=== PATIENT | male | born 1985 | race Caucasian/White ===

== ENCOUNTER 2025-02-24 14:22 | Inpatient (IN) | payer OTHER, SELFPAY ==
[2025-02-24] VITALS (7 sets, daily range): BP systolic 88–113; BP diastolic 53–71; PULSE 75–112; RESP 16–20; TEMP 36.8–37.2; O2SAT 91–100; BMI 16.0
--- NOTE | ~2025-02-24 | CT_ITS ---
CLINICAL HISTORY: pleural effusion hypoxia wt loss ?malignancy vs PE CT angiography chest with contrast. 3D Postprocessing. Comparison: None Findings: The heart is normal size. RV/LV ratio is normal. Unremarkable thoracic aorta and great vessels. No aneurysm. No acute pulmonary embolus. The visualized thyroid and mediastinum are unremarkable. Moderate left pleural effusion. Complete consolidation of the left lower lobe. Scattered nodular and masslike foci of consolidation within the right lower lobe measuring up to 3.6 cm in size. Mild ground-glass opacities within the right lower lobe. Nodular foci of consolidation within the posterior aspect of the left upper lobe measuring up to 2 cm in size. The visualized upper abdomen is unremarkable. The bones are intact. IMPRESSION: 1. No evidence of pulmonary artery embolism. 2. Moderate left pleural effusion. 3. Complete consolidation of the left lower lobe, compatible with pneumonia. 4. Nodular and masslike foci of consolidation are present within the lungs, most pronounced within the right lower lobe. This may be secondary to pneumonia. Malignancy is also in the differential. Recommend follow-up to resolution. This document has been electronically signed by: Renae Ashley MD on 02/24/2025 17:32:49
--- NOTE | ~2025-02-24 | XR_ITS ---
EXAMINATION: XR CHEST CLINICAL INFORMATION: SOB, abn breath sounds on L side COMPARISON: [September, is not available on PACS. TECHNIQUE: 2 views of the chest were obtained. FINDINGS: Opacity in the right lower hemithorax. Meniscal shaped opacity in the lower left hemithorax. No pneumothorax. Cardiomediastinal silhouette size is normal. Mild multilevel thoracic scoliosis. Gas filled prominent splenic colonic flexure and transverse colon. XR/XR chest 2V IMPRESSION: Right-sided pleural effusion, moderate to large volume. Airspace disease versus malignancy, right lower lung lobe. Electronically signed by: En Alcantara MD 02/24/2025 02:54 PM EDT
--- NOTE | 2025-02-24 14:23 | ECG_ITS ---
Test Reason : CHEST PAIN Blood Pressure : */* mmHG Vent. Rate : 107 BPM Atrial Rate : 107 BPM P-R Int : 140 ms QRS Dur : 92 ms QT Int : 366 ms P-R-T Axes : 55 13 31 degrees QTcB Int : 488 ms Sinus tachycardia Otherwise normal ECG No previous ECGs available Referred By: Generic ED Physician Electronically Signed By: NATALIA MIRANDA
--- NOTE | 2025-02-24 14:35 | ED_ITS ---
HPI - General Adult General Chief complaint: Upper Respiratory Symptoms Stated complaint: Chest Pain Time Seen by Provider: 02/24/25 15:27 Source: patient, RN notes reviewed and old records reviewed Mode of arrival: ambulatory History of Present Illness ED Provider: Jennifer Hu PA-C HPI narrative: 39 year old male with a past medical history of substance use disorder presents to the ED complaining of productive cough x 3 weeks. He reports associated 10 lb unintentional weight loss over the past 2 weeks. Denies fever, chills, abdominal pain, nausea, vomiting, travel, sick contacts. Denies IVDA however admits to snorting cocaine, heroin, Xanax Related Data Home Medications ?Medication ?Instructions ?Recorded ?Confirmed No Known Home Meds 02/24/25 02/24/25 Allergies Allergy/AdvReac Type Severity Reaction Status Date / Time cat dander AdvReac Difficulty Verified 02/24/25 14:39 Breathing dog dander AdvReac Difficulty Verified 02/24/25 14:39 Breathing Review of Systems 2 Review of Systems: Yes all other systems are reviewed and are negative Constitutional: Constitutional: Reports as per [facility] Past Medical History Attestation statement: The following information was validated with the patient. Source: old records reviewed Social History Social History Patient Tobacco Use Status: Current someday Tobacco user Smoked in Last 30 Days: Yes Use of substances other than those prescribed or required for medical reasons: Yes Substance Use Type: Crack/Cocaine and Heroin Substance Use Frequency: Weekly Last Used Substance: Days (ago) Advance Directives: No Advance Directives Information Provided: Yes Nutrition Risks: No Nutritional Risk Physical Exam ED Vital Signs: Vital Signs - 24 hr 02/24/25 14:34 02/24/25 15:19 02/24/25 15:41 Temperature 98.7 F 98.6 F Pulse Rate 112 H 95 Respiratory Rate 20 20 Blood Pressure 113/71 100/70 Pulse Oximetry 91 L 99 99 Oxygen Delivery Method Room Air Nasal Cannula Nasal Cannula Oxygen Flow Rate 2 02/24/25 16:41 02/24/25 16:41 02/24/25 16:42 Temperature Pulse Rate 75 78 Respiratory Rate 18 18 Blood Pressure 88/62 L 93/53 L Pulse Oximetry 91 L 99 99 Oxygen Delivery Method Room Air Nasal Cannula Nasal Cannula Oxygen Flow Rate 2 2 02/24/25 17:21 Temperature 98.3 F Pulse Rate 76 Respiratory Rate 18 Blood Pressure 98/64 Pulse Oximetry 100 Oxygen Delivery Method Nasal Cannula Oxygen Flow Rate 2 BMI result Body Mass Index 16.0 Const General: cooperative and no acute distress Nutritional Appearance: cachectic Orientation/consciousness: patient oriented x3 Limitations: no limitations HENMT Head: Yes normal to inspection and Yes atraumatic Ears: hearing grossly normal bilaterally General nose exam: Normal external nose present Face and sinus: Yes normal facial exam Eyes General: appearance normal, both eyes and all related structures EOM: EOMs intact bilaterally Neck Neck: Yes normal visual inspection and Yes no meningeal signs Resp Effort & Inspection: normal respiratory effort and no respiratory distress Auscultation: diminished lung sounds bilateral in the lower lung ferris Cardio Rate: regular rate and tachycardic Heart sounds: S1 normal heart sound present and S2 normal heart sound present GI Inspection: Yes normal to inspection Palpation (GI): Soft to palpation, nontender, no guarding and not rigid Skin Rashes: no rashes Wounds: no wounds Neuro General: patient oriented x3, tone normal, moves all extremities and no meningeal signs Cranial nerves: Yes CN's II-XII intact bilaterally Gait exam (Neuro): Normal gait present Extrem General: Yes normal to inspection Course Course Course Narrative: RME performed by Fannie Valadez PA-C. Patient is a 39 year old assigned male at presenting to the emergency department with chest pain with coughing and feeling generally unwell. Detailed physical exam and review of systems are deferred to the front counter attendant. Imaging, labs, and swabs ordered. Patient placed back in the waiting room pending room availability and results. -1700--leukocytosis of 14.8. ESR elevated to 102. CRP elevated to 19.82. Lactic acid WNL. Labs otherwise reassuring. -viral testing negative XR chest 2V IMPRESSION: Right-sided pleural effusion, moderate to large volume. Airspace disease versus malignancy, right lower lung lobe. > empiric Rocephin ordered CT angio chest PE protocol IMPRESSION: 1. No evidence of pulmonary artery embolism. 2. Moderate left pleural effusion. 3. Complete consolidation of the left lower lobe, compatible with pneumonia. 4. Nodular and masslike foci of consolidation are present within the lungs, most pronounced within the right lower lobe. This may be secondary to pneumonia. Malignancy is also in the differential. Recommend follow-up to resolution. Plan to admit for further management Medications Administered Generic Name Dose Route Start Last Admin Trade Name Freq PRN Reason Stop Dose Admin Enoxaparin Sodium 40 mg 02/24/25 18:30 02/24/25 18:49 Enoxaparin Sodium 40 Mg/0.4 Ml Syringe SUBCUT Not Given Q24H FOZIA Piperacillin Sod/Tazobactam 100 mls @ 200 mls/hr 02/24/25 18:00 02/25/25 07:00 Sod 4.5 gm/ Sodium Chloride IV Infused Q6H FOZIA Infusion Vancomycin HCl 1,250 mg/ 250 mls @ 166.667 mls/hr 02/25/25 08:00 02/25/25 10:24 Sodium Chloride IV Infused Q12H FOZIA Infusion Methadone HCl 135 mg 02/25/25 09:40 02/25/25 10:30 Methadone Hcl 20 Mg/2 Ml Oral.Conc PO 135 mg DAILY@0800 FOZIA Administration Sodium Chloride 3 ml 02/25/25 00:00 02/25/25 08:55 0.9 % Sodium Chloride Flush 3 Ml Syringe IVFLUSH 3 ml QSHIFT FOZIA Administration Discontinued Medications Generic Name Dose Route Start Last Admin Trade Name Freq PRN Reason Stop Dose Admin Ceftriaxone Sodium 1 gm 02/24/25 16:27 02/24/25 16:51 Ceftriaxone Sodium 1 Gm Vial IVPUSH 02/24/25 16:28 1 gm ONCE ONE Administration Sodium Chloride 1,000 mls @ 999 mls/hr 02/24/25 17:00 02/24/25 17:54 Ns IV 02/24/25 18:00 Infused .Q1H1M FOZIA Infusion Azithromycin 500 mg/ Sodium 250 mls @ 125 mls/hr 02/24/25 17:38 02/24/25 21:03 Chloride IV 02/24/25 19:37 Infused ONCE ONE Infusion Vancomycin HCl 1,500 mg/ 500 mls @ 333.333 mls/hr 02/24/25 18:15 02/24/25 21:03 Sodium Chloride IV 02/24/25 19:44 Infused ONCE ONE Infusion Iohexol 100 ml 02/24/25 17:01 02/24/25 17:04 Iohexol 350 Mg/Ml 100 Ml Infus..Btl IV 02/24/25 17:02 65 ml ONCE ONE Administration Phytonadione 5 mg 02/24/25 17:59 02/24/25 18:20 Phytonadione (Vit K1) Oral 10 Mg/Ml Ampul PO 02/24/25 18:00 5 mg ONCE ONE Administration Phytonadione 5 mg 02/25/25 08:18 02/25/25 10:16 Phytonadione (Vit K1) Oral 10 Mg/Ml Ampul PO 02/25/25 08:19 5 mg ONCE ONE Administration Medical Decision Making Medical Decision Making MDM Narrative: 39 year old male with a past medical history of substance use disorder presents to the ED complaining of productive cough x 3 weeks. He reports associated 10 lb unintentional weight loss over the past 2 weeks. On exam tachycardic, hypoxic to 91 on room air > 99% on 2L NC. Lungs with diminished breath sounds bibasilarly. Cachectic, chronically ill-appearing. Concern for underlying malignancy vs pleural effusion vs pulmonary embolism vs pneumonia. Unlikely viral illness or DVT or dissection. Low suspicion for severe sepsis at this time Plan: EKG, labs, CXR, CT AP, anticipated admission Please refer to course for remaining clinical decision making, interpretation of labs/imaging results, and discussions with consultants and/or family members. Differential Diagnosis Differential Diagnoses: The differential diagnosis associated with the presentation includes As above Admission/Observation Consideration of admission/observation: Escalation of care including admission/observation considered Consult Healthcare Provider Management of the patient was discussed with: Hospitalist Lab Data [facility] Lab Attestation statement: I reviewed the patient's lab results. 02/25/25 06:20 02/25/25 06:20 Labs: Lab Results 02/24/25 02/24/25 02/24/25 Range/Units 15:30 16:43 18:27 WBC 14.8 H (4.8-10.8) X10*3/uL RBC 3.85 L (4.60-5.80) X10*6/uL Hgb 10.8 L (14.0-18.0) g/dl Hct 33.5 L (42.0-52.0) % MCV 87.0 (80.0-98.0) fL MCH 28.1 (27.0-33.0) pg MCHC 32.2 (31.0-36.0) g/dl RDW 14.6 (11.0-16.0) % Plt Count 620 H (160-400) X10*3/uL MPV 9.8 (9.4-12.4) fL Immature Gran % (Auto) 1.1 H (0.0-0.4) % Neut % (Auto) 75.1 H (45-73) % Lymph % (Auto) 8.3 L (20-40) % [place] % (Auto) 6.4 (2-11) % Eos % (Auto) 8.5 H (0-4) % Baso % (Auto) 0.6 (0-2) % Lymph # (Auto) 1.2 (1.2-4.9) X10*3/uL [place] # (Auto) 0.9 (0.1-1.2) X10*3/uL Eos # (Auto) 1.3 H (0.0-0.4) X10*3/uL Baso # (Auto) 0.1 (0.0-0.2) X10*3/uL Abs Immat Gran (auto) 0.16 H (0.00-0.03) X10*3/uL Absolute Neuts (auto) 11.1 H (2.0-8.3) x10*3/uL Absolute Nucleated RBC 0.000 (0.0-0.012) X10*3/uL Nucleated RBC % (auto) 0.0 (0.0-0.2) /100WBC ESR 102 H (0-15) MM/HR PT 21.0 H (10.9-12.4) SEC INR 1.8 H (0.9-1.1) Sodium 138 (135-145) mmol/L Potassium 3.9 (3.3-5.1) mmol/L Chloride 98 (96-108) mmol/L Carbon Dioxide 33 H (22-29) mmol/L Anion Gap 11 L (12-20) BUN 7 L (9-16) mg/dL Creatinine 0.64 (0.5-1.4) mg/dL Estim Creat Clear Calc 115.8 Estimated GFR > 60 Random Glucose 73 (60-115) mg/dL Lactic Acid 0.7 (0.5-2.0) mmol/L Calcium 8.3 L (8.4-10.2) mg/dL Magnesium 2.1 (1.6-2.6) mg/dL Total Bilirubin 0.2 (0.0-1.0) mg/dL AST 50 H (5-37) U/L ALT 35 (0-40) U/L Alkaline Phosphatase 90 (39-117) U/L Troponin I High Sens < 2.7 (<3.5-35.0) ng/L C-Reactive Protein 19.82 H (< or = 0.50) mg/dL B-Natriuretic Peptide 17 (<100) pg/mL Total Protein 7.6 (6.5-8.0) g/dL Albumin 2.2 L (3.5-5.0) g/dL Procalcitonin 0.16 ng/mL Nasal Screen MRSA (PCR) POSITIVE A (Negative) Nasal S. aureus Screen POSITIVE A (Negative) Nasal MRSA/S.aureus Interp SEE NOTE Influenza Type A (PCR) NEGATIVE (Negative) Influenza Type B (PCR) NEGATIVE (Negative) RSV RNA Qual (PCR) NEGATIVE (Negative) SARS-CoV-2 RNA (RT-PCR) NEGATIVE (Negative) Independent Interpretation I performed an independent interpretation of an: EKG (My interpretation EKG sinus tachycardia rate of 107. SC interval 140. No previous EKGs to compare. No STEMI ) Radiology Impression Discussion of test interpretation with radiology: I have reviewed the radiologist's reading. External Record Review External record reviewed: Inpatient record, Office record, Outpatient record, Prior outpatient labs, Prior outpatient radiology, Primary care record and Outside ED record Tests considered The following testing was considered but not selected: As above Prescription Management I considered prescription management with: Pain Medication, Antibiotic and Other Chronic Conditions Patient?s care impacted by: Other Social Determinants Patient?s care significantly limited by Social Determinants of Health including: Inadequate housing, Low income, Alcoholism and drug addiction in family, Problems related to primary support group, Unemployment, Problems related to employment and Other Social Determinant of Health Critical Care Time Critical Care Time Critical Care Time: Yes Total Critical Care Time: 40 Attestation: I have personally provided critical care time exclusive of time spent on separately billable procedures. Time includes review of lab data, radiology results, discussion with consultants, and monitoring for potential decompensation. Intervention performed as documented. Discharge Plan Discharge Clinical Impression: Pneumonia, Hypoxia, Lung mass Patient Disposition: Admitted As Inpatient Interventions: Admission Worksheet (ED) Last Done: 02/24/25 19:12
[2025-02-24 15:38] LABS: MANUAL DIFF FLAG NO
[2025-02-24 15:41] LABS: Basophils Absolute Auto 0.1 X10*3/uL (0.0-0.2); Basophils Percent Auto 0.6 % (0-2); Eosinophils Absolute Auto 1.3 X10*3/uL (0.0-0.4); Eosinophils Percent Auto 8.5 % (0-4); Hematocrit 33.5 % (42.0-52.0); Hemoglobin 10.8 g/dl (14.0-18.0); Imm Gran Abs Auto 0.16 X10*3/uL (0.00-0.03); Imm Gran Pct Auto 1.1 % (0.0-0.4); Lymphocytes Absolute Auto 1.2 X10*3/uL (1.2-4.9); Lymphocytes Percent Auto 8.3 % (20-40); Mean Corpuscular HGB Conc 32.2 g/dl (31.0-36.0); Mean Corpuscular Hemoglobin 28.1 pg (27.0-33.0); Mean Platelet Volume 9.8 fL (9.4-12.4); Monocytes Absolute Auto 0.9 X10*3/uL (0.1-1.2); Monocytes Percent Auto 6.4 % (2-11); Neutrophils Absolute Auto 11.1 x10*3/uL (2.0-8.3); Neutrophils Percent Auto 75.1 % (45-73); Platelet Count 620 X10*3/uL (160-400); Red Blood Count 3.85 X10*6/uL (4.60-5.80); Red Cell Distribution Width 14.6 % (11.0-16.0); White Blood Count 14.8 X10*3/uL (4.8-10.8)
[2025-02-24 16:01] LABS: Alanine Aminotransferase 35 U/L (0-40); Albumin Level 2.2 g/dL (3.5-5.0); Alkaline Phosphatase 90 U/L (39-117); Anion Gap 11 (12-20); Aspartate Amino Transferase 50 U/L (5-37); Bilirubin Total 0.2 mg/dL (0.0-1.0); Blood Urea Nitrogen 7 mg/dL (9-16); C Reactive Protein 19.82 mg/dL (< or = 0.50); Calcium 8.3 mg/dL (8.4-10.2); Carbon Dioxide 33 mmol/L (22-29); Chloride 98 mmol/L (96-108); Creatinine Clr Calc Pharmacy 115.8; Estimated Glomerular Filt Rate > 60; Glucose Random 73 mg/dL (60-115); Potassium 3.9 mmol/L (3.3-5.1); Sodium 138 mmol/L (135-145); Total Protein 7.6 g/dL (6.5-8.0)
[2025-02-24 16:19] LABS: Erythrocyte Sedimentation Rate 102 MM/HR (0-15); Influenza A PCR NEGATIVE (Negative); Influenza B PCR NEGATIVE (Negative); Resp Syncy Virus RNA Qual PCR NEGATIVE (Negative); SARS COV2 PCR INHOUSE NEGATIVE (Negative)
[2025-02-24 16:28] LABS: Magnesium 2.1 mg/dL (1.6-2.6)
[2025-02-24 16:39] LABS: B Type Natriuretic Peptide 17 pg/mL (<100)
[2025-02-24 16:42] LABS: Troponin-I High Sensitivity < 2.7 ng/L (<3.5-35.0)
--- NOTE | 2025-02-24 16:46 | PC.NURSE ---
pt noted to be 91% on RA. pt placed on 2L via NC w/ good effect - SPO2 @ 99% via 2L. pt also noted to be hypotensive. provider notified/aware of results. additional 18gIV placed in the left wrist - labs obtained/sent to lab. IVF now infusing per provider order. plan of care ongoing. call jon placed within reach.
[2025-02-24] MEDS: cefTRIAXone sodium 1 GM VIAL IVPUSH (16:51)
[2025-02-24] MEDS: 0.9 % Sodium Chloride 1,000 ML 999 ML IV (16:51)
--- NOTE | 2025-02-24 16:55 | PC.NURSE ---
abx administered per provider order. pt transferred to CT at this time.
[2025-02-24 16:58] LABS: INTERNATIONAL NORM RATIO 1.8 (0.9-1.1)
[2025-02-24 17:03] LABS: Lactic Acid 0.7 mmol/L (0.5-2.0)
[2025-02-24] MEDS: iohexoL 350 MG/ML 100 ML INFUS..BTL IV (17:04)
[2025-02-24] MEDS: Azithromycin 500 MG in 0.9 % Sodium Chloride 250 ML 125 MG IV (17:57)
--- NOTE | 2025-02-24 17:57 | PC.NURSE ---
provider discussing results of CTA results at this time. pt notified/aware in regards to the plan of being admitted. abx infusing per provider order. pt otherwise remains on 2L via NC. BP continues to improve s/p IVF bolus. otherwise vss and up to date. nsr on the oncology social worker. plan of care ongoing. call jon placed within reach.
[2025-02-24] MEDS: vancomycin HCL 1,500 MG in 0.9 % Sodium Chloride 500 ML 333.33 MG IV (18:20)
[2025-02-24] MEDS: Phytonadione (Vit K1) Oral 10 MG/ML AMPUL 5 MG PO (18:20)
[2025-02-24] MEDS: Piperacillin Sodium/Tazobactam 4.5 GM in 0.9 % Sodium Chloride 100 ML IV (18:20)
--- NOTE | 2025-02-24 18:35 | PM.IMHP ---
History of Present Illness Date of Service: 02/24/25 Chief Complaint: cough 39yo M with polysubstance abuse disorder on methadone 135 mg/d through [facility] but despite this using intranasal fentanyl, cocaine, and alprazolam; presents today with 2-week history of worsening cough productive of green sputum, unintentional 10-lb weight loss, and malaise. No fever, chills, chest pain, or hemoptysis. No travel history nor occupational exposures. Denies injecting drugs; just inhales them. No history of chronic lung disease. In the ED, found to have leukocytosis and borderline low oxygenation with SaO2 91% on room air. CT angio of the chest negative for PE, but did show moderate L pleural effusion, complete LLL consolidation, and nodular areas of consolidation in the RLL concerning for pneumonia versus malignancy. Blood cultures were drawn and he was given ceftriaxone and azithromycin. Review of Systems Review of Systems: Yes all other systems are reviewed and are negative PMFSH Social History Smoked in Last 30 Days: Yes Use of substances other than those prescribed or required for medical reasons: Yes Substance Use Type: Crack/Cocaine and Heroin Substance Use Frequency: Weekly Last Used Substance: Days (ago) Advance Directives: No Advance Directives Information Provided: Yes Meds Allergies Allergy/AdvReac Type Severity Reaction Status Date / Time cat dander AdvReac Difficulty Verified 02/24/25 14:39 Breathing dog dander AdvReac Difficulty Verified 02/24/25 14:39 Breathing Active Medications: Current Medications Acetaminophen (Acetaminophen 325 Mg Tablet) 650 mg PO Q6H PRN PRN Reason: Pain, Mild 1-3,fever,headache Calcium Carbonate (Calcium Carbonate 750 Mg Tab.Chew) 750 mg PO Q4H PRN PRN Reason: Heartburn Enoxaparin Sodium (Enoxaparin Sodium 40 Mg/0.4 Ml Syringe) 40 mg SUBCUT Q24H FOZIA Azithromycin 500 mg/ Sodium (Chloride) 250 mls @ 125 mls/hr IV ONCE ONE Stop: 02/24/25 19:37 Last Admin: 02/24/25 17:57 Dose: 125 mls/hr Piperacillin Sod/Tazobactam (Sod 4.5 gm/ Sodium Chloride) 100 mls @ 200 mls/hr IV Q6H FOZIA Last Admin: 02/24/25 18:20 Dose: 200 mls/hr Vancomycin HCl 1,500 mg/ (Sodium Chloride) 500 mls @ 333.333 mls/hr IV ONCE ONE Stop: 02/24/25 19:44 Last Admin: 02/24/25 18:20 Dose: 333.33 mls/hr Vancomycin HCl 1,250 mg/ (Sodium Chloride) 250 mls @ 166.667 mls/hr IV Q12H [facility] Magnesium Hydroxide (Milk Of Magnesia 30 Ml Oral.Susp) 30 ml PO DAILY PRN PRN Reason: Constipation Melatonin (Melatonin 3 Mg Tablet) 6 mg PO BEDTIME PRN PRN Reason: Insomnia Ondansetron HCl (Ondansetron Hcl 4 Mg/2 Ml Vial) 4 mg IVPUSH Q8H PRN PRN Reason: Nausea and Vomiting Pharmacy Consult (Consult Rx Vancomycin Dosing) 1 each MISCELLANE DAILY PRN PRN Reason: Consult order Sodium Chloride (0.9 % Sodium Chloride Flush 3 Ml Syringe) 3 ml IVFLUSH QSHIFT [facility] Physical Exam Vital Signs and Narrative: Vital Signs: Last Vital Signs Temp 98.3 F 02/24/25 17:21 Pulse 76 02/24/25 17:21 Resp 18 02/24/25 17:21 BP 98/64 02/24/25 17:21 Pulse Ox 100 02/24/25 17:21 O2 Del Method Nasal Cannula 02/24/25 17:21 O2 Flow Rate 2 02/24/25 17:21 Oxygen Flow Rate 2 02/24/25 15:41 BMI result Body Mass Index 16.0 Gen: in no acute distress, thin, pale, malnourished HEENT: sclera anicteric, moist mucus membranes, no thrush Neck: supple Lungs: diminished L base Heart: regular rate and rhythm, no murmurs Abd: soft, non-tender, non-distended Ext: no edema Skin: warm/well-perfused Neuro: alert and oriented x3, no focal findings Psych: appropriate affect Results Labs 02/24/25 15:30 02/24/25 15:30 Labs: Laboratory Results - last 24 hr 02/24/25 02/24/25 15:30 16:43 MCV 87.0 MCH 28.1 MCHC 32.2 RDW 14.6 Plt Count 620 H MPV 9.8 Immature Gran % (Auto) 1.1 H Neut % (Auto) 75.1 H Lymph % (Auto) 8.3 L [place] % (Auto) 6.4 Eos % (Auto) 8.5 H Baso % (Auto) 0.6 Lymph # (Auto) 1.2 [place] # (Auto) 0.9 Eos # (Auto) 1.3 H Baso # (Auto) 0.1 Abs Immat Gran (auto) 0.16 H Absolute Neuts (auto) 11.1 H Absolute Nucleated RBC 0.000 Nucleated RBC % (auto) 0.0 ESR 102 H PT 21.0 H INR 1.8 H Anion Gap 11 L Estim Creat Clear Calc 115.8 Estimated GFR > 60 Random Glucose 73 Lactic Acid 0.7 Calcium 8.3 L Magnesium 2.1 Total Bilirubin 0.2 AST 50 H ALT 35 Alkaline Phosphatase 90 C-Reactive Protein 19.82 H B-Natriuretic Peptide 17 Total Protein 7.6 Albumin 2.2 L Influenza Type A (PCR) NEGATIVE Influenza Type B (PCR) NEGATIVE RSV RNA Qual (PCR) NEGATIVE SARS-CoV-2 RNA (RT-PCR) NEGATIVE Imaging Radiologist's Impressions: Impressions Chest X-Ray 02/24/25 14:36 IMPRESSION: Right-sided pleural effusion, moderate to large volume. Airspace disease versus malignancy, right lower lung lobe. Electronically signed by: En Alcantara MD 02/24/2025 02:54 PM EDT Assessment and Plan (1) Pneumonia: Status: Acute (2) Lung mass: Status: Acute Plan 39yo M with polysubstance abuse on methadone presenting with 2 weeks of cough and unintentional weight loss; found to have multifocal pneumonia multifocal pneumonia with parapneumonic effusion - admit to Med/Surg, follow BCx, trend PCT, check urinary antigens for Legionella and pneumococcus + MRSA swab + HIV Ab/Ag; give vancomycin + piperacillin-tazobactam and narrow antibiotic coverage pending results of testing; consult Pulmonology; repeat imaging as outpt in 1 mo polysubstance abuse - verify methadone dose; Addiction Medicine consultation - screen for HBV/HCV/HIV coagulopathy - suspect nutritional; will give vitamin K and repeat INR moderate malnutrition - supplements VTE ppx - enoxaparin dispo - eventual home code status - full I anticipate that the patient will stay at least 2 midnights as an inpatient in the hospital due to the above reasons. It is neither reasonable nor safe to care for them in a less acute setting. Quality Stroke Does the patient have a stroke diagnosis?: No VTE Prior VTE?: No VTE Risk Level:: Medical - moderate - high VTE Device Contraindication: N/A - Device Ordered VTE Drug Contraindication: N/A - Med Ordered
[2025-02-24 18:36] LABS: Procalcitonin 0.16 ng/mL
--- NOTE | 2025-02-24 19:33 | PC.NURSE ---
Took report from off-going RN at 1900 hours. Pt is a pleasant, cachetic-looking male who presents for evaluation of cough that has been ongoing for approx 3 weeks with left rib pain. Hx of rib fracture in the same area. Reports needing to splint to cough. Reports poor appetite. Denies fever. Pt is pending admission for PNA and further evaluation of concerning area in lung ferris. Will continue to monitor for any changes.
--- NOTE | 2025-02-24 20:48 | PHA.MEDREC ---
Addendum entered by Nikunj Carlson formerly [facility] 02/24/25 20:50: Med rec reviewed Original Note: Pharmacy Consult ? Medication Reconciliation Pharmacy has completed the medication reconciliation. Spoke with patient and he confirmed he is not taking anything at this time.
--- NOTE | 2025-02-24 21:41 | PC.NURSE ---
Patient sleeping at this time. Respirations even/unlabored. No acute distress. Did not disturb. Lights dimmed for comfort. Call jon within reach. Care ongoing by this RN.
[2025-02-25] MEDS: Piperacillin Sodium/Tazobactam 4.5 GM in 0.9 % Sodium Chloride 100 ML IV ×4 (00:25→18:57)
[2025-02-25] MEDS: 0.9 % Sodium Chloride Flush 3 ML SYRINGE IVFLUSH ×2 (00:26→08:55)
[2025-02-25 06:00] VITALS: BP 100/56; PULSE 70; RESP 16; TEMP 36.7; O2SAT 93
[2025-02-25 06:28] LABS: Hematocrit 30.4 % (42.0-52.0); Hemoglobin 9.9 g/dl (14.0-18.0); Mean Corpuscular HGB Conc 32.6 g/dl (31.0-36.0); Mean Corpuscular Volume 85.9 fL (80.0-98.0); Mean Platelet Volume 9.7 fL (9.4-12.4); Platelet Count 600 X10*3/uL (160-400); Red Blood Count 3.54 X10*6/uL (4.60-5.80); Red Cell Distribution Width 14.8 % (11.0-16.0); White Blood Count 12.9 X10*3/uL (4.8-10.8)
[2025-02-25 06:30] LABS: VBG Base Excess 8.1 mmol/L; VBG HCO3 32 mmol/L (22-26); VBG pCO2 42 mmHg; VBG pH 7.48 (7.32-7.43); VBG pO2 45 mmHg
[2025-02-25 06:30] LABS: Venous Blood Gas Refer to POC result
[2025-02-25 06:34] LABS: INTERNATIONAL NORM RATIO 1.7 (0.9-1.1)
[2025-02-25 06:49] LABS: Anion Gap 13 (12-20); Blood Urea Nitrogen 6 mg/dL (9-16); Calcium 7.7 mg/dL (8.4-10.2); Carbon Dioxide 27 mmol/L (22-29); Chloride 103 mmol/L (96-108); Creatinine Clr Calc Pharmacy 130.1; Estimated Glomerular Filt Rate > 60; Potassium 3.8 mmol/L (3.3-5.1); Sodium 139 mmol/L (135-145)
[2025-02-25 06:50] LABS: Glucose Random 56 mg/dL (60-115)
--- NOTE | 2025-02-25 06:56 | PC.NURSE ---
critical glucose 56, patient give Fluids and luis carlos velez RN aware
[2025-02-25 07:36] LABS: Glucose, Whole Blood 89 mg/dL (60-115)
[2025-02-25 07:41] LABS: HIV AB/AG Nonreactive (Nonreactive); HIV Num 1 0.13 S/CO (0.00-0.99)
[2025-02-25 07:46] LABS: HBS Num1 32.68 mIU/mL (0-7.99); HBc Num1 0.34 S/CO (0.00-0.79); HBsAGNum1 0.31 S/CO (0.00-0.99); Hepatitis B Core Antibody Nonreactive (Nonreactive); Hepatitis B Surface Antigen Negative (Negative); ~HepC Num1 9.37 S/CO (0.00-0.79); ~Hepatitis B Surface Antibody REACTIVE (Nonreactive); ~Hepatitis C Antibody Reactive (Nonreactive)
--- NOTE | 2025-02-25 08:25 | PC.NURSE ---
Recheck on BGL 89, pt eating and drinking
[2025-02-25 08:35] LABS: MRSA Nasal PCR POSITIVE (Negative); SA Nasal PCR POSITIVE (Negative)
[2025-02-25] MEDS: vancomycin HCL 1,250 MG in 0.9 % Sodium Chloride 250 ML 166.67 MG IV (08:56)
--- NOTE | 2025-02-25 09:01 | PC.NURSE ---
Methadone dose verified by this RN from [facility], 135 mg. Paperwork sent to pharmacy, provider alerted.
--- NOTE | 2025-02-25 09:23 | MHC.RECOVRN ---
Went to meet with pt in ED OF 6 after receiving referral for Consult. Pt resting comfortably. Methadone dose already verified by EMERGENCY VEHICLE TECHNICIAN and awaiting provider order. I introduced myself to pt and ensured he was comfortable and didn't need anything. I plan to meet with pt. and provide full assessment once he is on the floor and more comfortable.Pt in agreement. T/W available as needed.
--- NOTE | 2025-02-25 09:46 | HE.PHANOTE ---
Methadone Methadone dose verified with [facility] [place] [phone] by Yojana Dey. RN spoke with Jenny and methadone dose is 135 mg daily, last dose 02/24/25 @0650.
[2025-02-25] MEDS: Phytonadione (Vit K1) Oral 10 MG/ML AMPUL 5 MG PO (10:16)
[2025-02-25] MEDS: methADONE HCl 20 MG/2 ML ORAL.CONC 135 MG PO (10:30)
--- NOTE | 2025-02-25 11:03 | PC.NURSE ---
Report received from JAMAR Keys. Taken over care at this time.
--- NOTE | 2025-02-25 11:48 | PM.CNPUL ---
History of Present Illness History of Present Illness Consult date: 02/25/25 Chief complaint: multifocal PNA Narrative: 39-year-old gentleman, active 15+ pack-year smoker, with underlying history of polysubstance abuse including cocaine and fentanyl, also on methadone admitted on 02/24/2025 with several week history of slowly worsening productive cough and dyspnea. On initial evaluation patient noted to have dense left lower lobe pneumonia with Xolair right-sided lesion. He was started on empiric antibiotics and admitted to telemetry service. Review of Systems Constitutional: Constitutional: Denies daytime sleepiness, Denies excessive sweating, Denies fatigue, Reports fever(s), Reports lethargy, Denies malaise, Denies night sweats, Denies snoring and Reports weight loss Eyes: Eyes: Denies blurry vision and Denies itchy eyes ENT: Denies nasal congestion, Denies post nasal drip, Denies sinus pain, Denies sinus pressure and Denies other ( Thrush) Cardiovascular: Cardiovascular: Denies chest pain, Denies pedal edema, Denies dyspnea, Reports dyspnea on exertion, Denies orthopnea and Denies paroxysmal nocturnal dyspnea Respiratory: Respiratory: Reports cough, Denies hemoptysis, Reports excessive phlegm production, Denies dyspnea, Reports dyspnea on exertion, Denies snoring and Denies wheezing Gastrointestinal: Gastrointestinal: Denies abdominal pain and Denies heartburn Musculoskeletal: Musculoskeletal: Denies myalgias, Denies arthralgias and Denies joint swelling Integumentary/Breasts: Skin/Breast: Denies rash Neurologic: Denies memory loss and Denies seizure-like activity Psychiatric: Psychiatric: Denies abnormal sleep pattern, Denies anxiety and Denies memory loss Endocrine: Endocrine: Denies excessive sweating, Denies fatigue and Denies heat intolerance Hematologic/Lymphatic: Hematologic/Lymphatic: Denies easy bruising Allergic/Immunologic: Allergic/Immunologic: Denies itchy eyes, Denies seasonal rhinorrhea and Denies wheezing PMFSH Social History Social History Patient Tobacco Use Status: Current someday Tobacco user Smoked in Last 30 Days: Yes Use of substances other than those prescribed or required for medical reasons: Yes Substance Use Type: Crack/Cocaine and Heroin Substance Use Frequency: Weekly Last Used Substance: Days (ago) Advance Directives: No Advance Directives Information Provided: Yes Nutrition Risks: No Nutritional Risk Meds Allergies Allergy/AdvReac Type Severity Reaction Status Date / Time cat dander AdvReac Difficulty Verified 02/24/25 14:39 Breathing dog dander AdvReac Difficulty Verified 02/24/25 14:39 Breathing Active Medications: Current Medications Acetaminophen (Acetaminophen 325 Mg Tablet) 650 mg PO Q6H PRN PRN Reason: Pain, Mild 1-3,fever,headache Calcium Carbonate (Calcium Carbonate 750 Mg Tab.Chew) 750 mg PO Q4H PRN PRN Reason: Heartburn Enoxaparin Sodium (Enoxaparin Sodium 40 Mg/0.4 Ml Syringe) 40 mg SUBCUT Q24H [facility] Last Admin: 02/24/25 18:49 Dose: Not Given Piperacillin Sod/Tazobactam (Sod 4.5 gm/ Sodium Chloride) 100 mls @ 200 mls/hr IV Q6H [facility] Last Infusion: 02/25/25 07:00 Dose: Infused Vancomycin HCl 1,250 mg/ (Sodium Chloride) 250 mls @ 166.667 mls/hr IV Q12H [facility] Last Infusion: 02/25/25 10:24 Dose: Infused Magnesium Hydroxide (Milk Of Magnesia 30 Ml Oral.Susp) 30 ml PO DAILY PRN PRN Reason: Constipation Melatonin (Melatonin 3 Mg Tablet) 6 mg PO BEDTIME PRN PRN Reason: Insomnia Methadone HCl (Methadone Hcl 20 Mg/2 Ml Oral.Conc) 135 mg PO DAILY@0800 [facility] Last Admin: 02/25/25 10:30 Dose: 135 mg Ondansetron HCl (Ondansetron Hcl 4 Mg/2 Ml Vial) 4 mg IVPUSH Q8H PRN PRN Reason: Nausea and Vomiting Pharmacy Consult (Consult Rx Vancomycin Dosing) 1 each MISCELLANE DAILY PRN PRN Reason: Consult order Sodium Chloride (0.9 % Sodium Chloride Flush 3 Ml Syringe) 3 ml IVFLUSH QSHIFT [facility] Last Admin: 02/25/25 08:55 Dose: 3 ml Home Medications ?Medication ?Instructions ?Recorded ?Confirmed ?Last Taken ?Type No Known Home Meds 02/24/25 02/24/25 Unknown History Physical Exam Vital Signs: Vital Signs: Last Vital Signs Temp 98.1 F 02/25/25 06:00 Pulse 70 02/25/25 06:00 Resp 16 02/25/25 06:00 BP 100/56 L 02/25/25 06:00 Pulse Ox 93 02/25/25 06:00 O2 Del Method Room Air 02/25/25 06:00 O2 Flow Rate 2 02/24/25 20:21 Oxygen Flow Rate 2 02/24/25 15:41 BMI result Body Mass Index 16.0 Const: General: no acute distress and alert Nutritional Appearance: cachectic Orientation/consciousness: Other orientation findings ( oriented) HEENT: Head: Yes atraumatic Eyes: General: appearance normal, both eyes and all related structures Sclerae: sclerae normal EOM: EOMs intact bilaterally Neck: Neck: Yes supple Lymphatic: no lymphadenopathy noted Resp: Effort & Inspection: normal respiratory effort and no use of accessory muscles Auscultation: other (Poor left basilar air movement) Cardio: Rate: regular rate Rhythm: regular rhythm Heart sounds: no gallops, no murmurs and no rubs Skin: General skin exam: other ( warm) Extrem: General: No clubbing, No cyanosis and No edema Results Laboratory Findings 02/25/25 06:20 02/25/25 06:20 ABG, PT/INR, D-dimer: PT/INR, D-dimer PT 20.0 SEC (10.9-12.4) H 02/25/25 06:20 INR 1.7 (0.9-1.1) H 02/25/25 06:20 Abnormal lab findings: Abnormal Labs 02/24/25 02/24/25 02/24/25 15:30 16:43 18:27 WBC 14.8 H RBC 3.85 L Hgb 10.8 L Hct 33.5 L Plt Count 620 H Immature Gran % (Auto) 1.1 H Neut % (Auto) 75.1 H Lymph % (Auto) 8.3 L Eos % (Auto) 8.5 H Eos # (Auto) 1.3 H Abs Immat Gran (auto) 0.16 H Absolute Neuts (auto) 11.1 H ESR 102 H PT 21.0 H INR 1.8 H VBG pH VBG HCO3 Carbon Dioxide 33 H Anion Gap 11 L BUN 7 L Random Glucose Calcium 8.3 L AST 50 H C-Reactive Protein 19.82 H Albumin 2.2 L Nasal Screen MRSA (PCR) POSITIVE A Nasal S. aureus Screen POSITIVE A Hepatitis C Ab (EIA) 02/25/25 02/25/25 06:20 06:27 WBC 12.9 H RBC 3.54 L Hgb 9.9 L Hct 30.4 L Plt Count 600 H Immature Gran % (Auto) Neut % (Auto) Lymph % (Auto) Eos % (Auto) Eos # (Auto) Abs Immat Gran (auto) Absolute Neuts (auto) ESR PT 20.0 H INR 1.7 H VBG pH 7.48 H VBG HCO3 32 H Carbon Dioxide Anion Gap BUN 6 L Random Glucose 56 L* Calcium 7.7 L D AST C-Reactive Protein Albumin Nasal Screen MRSA (PCR) Nasal S. aureus Screen Hepatitis C Ab (EIA) Reactive H Assessment and Plan (1) Pneumonia: Status: Acute Plan Impression: 39-year-old gentleman with underlying polysubstance abuse admitted with 2-3 week history of worsening dyspnea and productive cough, noted to have left-sided pneumonia with likely right-sided Synthroid lesions, though malignancy can not be completely excluded. Recommendation: Agree with current broad-spectrum empiric antibiotic with anaerobic coverage for likely aspiration component. Will requiring repeating imaging in 1-2 months and further outpatient pulmonary follow-up. Procedures Date of Service Date of Service: 02/25/25
--- NOTE | 2025-02-25 12:16 | HO.PM.IMPN ---
Subjective Subjective Date of Service: 02/25/25 Interval History: no fever cough improved Review of Systems Review of Systems: Yes all other systems are reviewed and are negative Physical Exam Vital Signs: Vital Signs: Last Vital Signs Temp 98.1 F 02/25/25 06:00 Pulse 70 02/25/25 06:00 Resp 16 02/25/25 06:00 BP 100/56 L 02/25/25 06:00 Pulse Ox 93 02/25/25 06:00 O2 Del Method Room Air 02/25/25 06:00 O2 Flow Rate 2 02/24/25 20:21 Oxygen Flow Rate 2 02/24/25 15:41 BMI result Body Mass Index 16.0 Gen: in no acute distress, thin, pale, malnourished HEENT: sclera anicteric, moist mucus membranes, no thrush Neck: supple Lungs: diminished L base Heart: regular rate and rhythm, no murmurs Abd: soft, non-tender, non-distended Ext: no edema Skin: warm/well-perfused Neuro: alert and oriented x3, no focal findings Psych: appropriate affect Objective Data Active Medications Acetaminophen (Acetaminophen 325 Mg Tablet) 650 mg PO Q6H PRN PRN Reason: Pain, Mild 1-3,fever,headache Calcium Carbonate (Calcium Carbonate 750 Mg Tab.Chew) 750 mg PO Q4H PRN PRN Reason: Heartburn Enoxaparin Sodium (Enoxaparin Sodium 40 Mg/0.4 Ml Syringe) 40 mg SUBCUT Q24H [facility] Last Admin: 02/24/25 18:49 Dose: Not Given Documented By: STEVEN Non-Admin Reason: See Note Piperacillin Sod/Tazobactam (Sod 4.5 gm/ Sodium Chloride) 100 mls @ 200 mls/hr IV Q6H [facility] Last Infusion: 02/25/25 07:00 Dose: Infused Documented By: SHIVA Vancomycin HCl 1,250 mg/ (Sodium Chloride) 250 mls @ 166.667 mls/hr IV Q12H [facility] Last Infusion: 02/25/25 10:24 Dose: Infused Documented By: SHIVA Magnesium Hydroxide (Milk Of Magnesia 30 Ml Oral.Susp) 30 ml PO DAILY PRN PRN Reason: Constipation Melatonin (Melatonin 3 Mg Tablet) 6 mg PO BEDTIME PRN PRN Reason: Insomnia Methadone HCl (Methadone Hcl 20 Mg/2 Ml Oral.Conc) 135 mg PO DAILY@0800 [facility] Last Admin: 02/25/25 10:30 Dose: 135 mg Documented By: SHIVA Co-signed By: ALDO Ondansetron HCl (Ondansetron Hcl 4 Mg/2 Ml Vial) 4 mg IVPUSH Q8H PRN PRN Reason: Nausea and Vomiting Pharmacy Consult (Consult Rx Vancomycin Dosing) 1 each MISCELLANE DAILY PRN PRN Reason: Consult order Sodium Chloride (0.9 % Sodium Chloride Flush 3 Ml Syringe) 3 ml IVFLUSH QSHIFT [facility] Last Admin: 02/25/25 08:55 Dose: 3 ml Documented By: SHIVA Labs 02/25/25 06:20 02/25/25 06:20 Labs: Laboratory Results - last 24 hr 02/24/25 02/24/25 02/24/25 15:30 16:43 18:27 MCV 87.0 MCH 28.1 MCHC 32.2 RDW 14.6 Plt Count 620 H MPV 9.8 Immature Gran % (Auto) 1.1 H Neut % (Auto) 75.1 H Lymph % (Auto) 8.3 L [place] % (Auto) 6.4 Eos % (Auto) 8.5 H Baso % (Auto) 0.6 Lymph # (Auto) 1.2 [place] # (Auto) 0.9 Eos # (Auto) 1.3 H Baso # (Auto) 0.1 Abs Immat Gran (auto) 0.16 H Absolute Neuts (auto) 11.1 H Absolute Nucleated RBC 0.000 Nucleated RBC % (auto) 0.0 ESR 102 H PT 21.0 H INR 1.8 H VBG pH VBG pCO2 VBG pO2 VBG HCO3 VBG O2 Saturation VBG Base Excess Anion Gap 11 L Estim Creat Clear Calc 115.8 Estimated GFR > 60 POC Glucose Random Glucose 73 Lactic Acid 0.7 Calcium 8.3 L Magnesium 2.1 Total Bilirubin 0.2 AST 50 H ALT 35 Alkaline Phosphatase 90 C-Reactive Protein 19.82 H B-Natriuretic Peptide 17 Total Protein 7.6 Albumin 2.2 L Procalcitonin 0.16 Nasal Screen MRSA (PCR) POSITIVE A Nasal S. aureus Screen POSITIVE A Nasal MRSA/S.aureus Interp SEE NOTE Hep Bs Antigen Hep Bs Antibody Hep B Core Total Ab Hepatitis C Ab (EIA) HIV 1&2 Ab/P24 Ag 4thGn Influenza Type A (PCR) NEGATIVE Influenza Type B (PCR) NEGATIVE RSV RNA Qual (PCR) NEGATIVE SARS-CoV-2 RNA (RT-PCR) NEGATIVE 02/25/25 02/25/25 02/25/25 06:20 06:27 07:21 MCV 85.9 MCH 28.0 MCHC 32.6 RDW 14.8 Plt Count 600 H MPV 9.7 Immature Gran % (Auto) Neut % (Auto) Lymph % (Auto) [place] % (Auto) Eos % (Auto) Baso % (Auto) Lymph # (Auto) [place] # (Auto) Eos # (Auto) Baso # (Auto) Abs Immat Gran (auto) Absolute Neuts (auto) Absolute Nucleated RBC 0.000 Nucleated RBC % (auto) 0.0 ESR PT 20.0 H INR 1.7 H VBG pH 7.48 H VBG pCO2 42 VBG pO2 45 VBG HCO3 32 H VBG O2 Saturation 74.0 VBG Base Excess 8.1 Anion Gap 13 Estim Creat Clear Calc 130.1 Estimated GFR > 60 POC Glucose 89 Random Glucose 56 L* Lactic Acid Calcium 7.7 L D Magnesium Total Bilirubin AST ALT Alkaline Phosphatase C-Reactive Protein B-Natriuretic Peptide Total Protein Albumin Procalcitonin Nasal Screen MRSA (PCR) Nasal S. aureus Screen Nasal MRSA/S.aureus Interp Hep Bs Antigen Negative Hep Bs Antibody REACTIVE Hep B Core Total Ab Nonreactive Hepatitis C Ab (EIA) Reactive H HIV 1&2 Ab/P24 Ag 4thGn Nonreactive Influenza Type A (PCR) Influenza Type B (PCR) RSV RNA Qual (PCR) SARS-CoV-2 RNA (RT-PCR) Assessment and Plan (1) Pneumonia: Status: Acute Plan d2 for 39yo M with polysubstance abuse on methadone presenting with 2 weeks of cough and unintentional weight loss; found to have multifocal pneumonia multifocal pneumonia with parapneumonic effusion - follow BCx, trend PCT, urinary antigens for Legionella and pneumococcus pending, MRSA positive, HIV negative; 02/24- vancomycin + piperacillin-tazobactam; Pulmonology consulted; repeat imaging as outpt in 1-2 mo with Pulm clinic f/u polysubstance abuse - verified methadone dose of 135 mg/d; Addiction Medicine consultation hx HCV - pt states previously treated; viral load pending coagulopathy - suspect nutritional; will give another 5 mg vitamin K and repeat INR moderate malnutrition - supplements VTE ppx - enoxaparin dispo - eventual home Total time managing care of this patient today: 35 minutes. Quality Stroke Does the patient have a stroke diagnosis?: No VTE Prior VTE?: No VTE Risk Level:: Medical - moderate - high VTE Device Contraindication: N/A - Device Ordered VTE Drug Contraindication: N/A - Med Ordered
--- NOTE | 2025-02-25 12:49 | PC.NURSE ---
Pt. sitting up in bed, eating lunch at this time. Call jon within reach. Pt. has no c/o pain or distress at this time. All needs met at this time.
[2025-02-25 13:20] VITALS: BP 92/54; PULSE 66; RESP 20; TEMP 36.5; O2SAT 94
[2025-02-25 14:00] VITALS: BP 92/54; PULSE 66; RESP 20; TEMP 36.5; O2SAT 94
[2025-02-25 18:33] LABS: Amphetamine Screen Urine Not Detected (Not Detect); Barbiturates, Urine Not Detected (Not Detect); Benzodiazepines Screen Urine POSITIVE (Not Detect); Buprenorphine Scr Not Detected (Not Detect); Cannabinoid Screen Urine Not Detected (Not Detect); Cocaine Screen Urine POSITIVE (Not Detect); Fentanyl, urine POSITIVE (Not Detect); Methadone Screen, Urine Positive (Not Detect); Opiate Screen Urine Not Detected (Not Detect); Oxycodone Screen Urine Not Detected (Not Detect); Phencyclidine Screen Urine Not Detected (Not Detect)
--- NOTE | 2025-02-25 20:39 | PC.NURSE ---
Derrick texted receiving RN, that vanco dose is still needed.
[2025-02-25 20:52] VITALS: BP 108/60; PULSE 67; RESP 18; TEMP 36.6; O2SAT 93
[2025-02-25 21:00] VITALS: BMI 15.2
[2025-02-25] MEDS: vancomycin HCL 1,000 MG in 0.9 % Sodium Chloride 250 ML 270 MG IV (21:21)
[2025-02-26] MEDS: Piperacillin Sodium/Tazobactam 4.5 GM in 0.9 % Sodium Chloride 100 ML IV ×4 (00:04→17:34)
[2025-02-26] MEDS: 0.9 % Sodium Chloride Flush 3 ML SYRINGE IVFLUSH ×3 (00:08→17:34)
[2025-02-26 03:47] VITALS: BP 107/59; PULSE 61; RESP 18; TEMP 36.1; O2SAT 93
[2025-02-26] MEDS: vancomycin HCL 1,000 MG in 0.9 % Sodium Chloride 250 ML 270 MG IV ×2 (05:04→11:46)
[2025-02-26 06:41] LABS: Hematocrit 31.3 % (42.0-52.0); Hemoglobin 10.4 g/dl (14.0-18.0); Mean Corpuscular HGB Conc 33.2 g/dl (31.0-36.0); Mean Corpuscular Hemoglobin 28.4 pg (27.0-33.0); Mean Corpuscular Volume 85.5 fL (80.0-98.0); Mean Platelet Volume 9.9 fL (9.4-12.4); Platelet Count 594 X10*3/uL (160-400); Red Blood Count 3.66 X10*6/uL (4.60-5.80); Red Cell Distribution Width 14.7 % (11.0-16.0); White Blood Count 9.2 X10*3/uL (4.8-10.8)
[2025-02-26 07:01] LABS: Anion Gap 11 (12-20); Blood Urea Nitrogen 8 mg/dL (9-16); Calcium 7.9 mg/dL (8.4-10.2); Carbon Dioxide 24 mmol/L (22-29); Chloride 107 mmol/L (96-108); Creatinine Clr Calc Pharmacy 127.8; Estimated Glomerular Filt Rate > 60; Glucose Random 72 mg/dL (60-115); Potassium 4.1 mmol/L (3.3-5.1); Sodium 138 mmol/L (135-145)
[2025-02-26 07:03] LABS: INTERNATIONAL NORM RATIO 1.6 (0.9-1.1); Prothrombin Time 19.1 SEC (10.9-12.4)
[2025-02-26 07:17] LABS: Procalcitonin 0.08 ng/mL
[2025-02-26 07:41] VITALS: BP 112/68; PULSE 69; RESP 16; TEMP 36.9; O2SAT 94
[2025-02-26] MEDS: methADONE HCl 20 MG/2 ML ORAL.CONC 135 MG PO (08:30)
[2025-02-26 08:31] LABS: Adenovirus PCR Not Detected (Not Detect.); Bordetella parapertussis PCR Not Detected (Not Detect.); Bordetella pertussis PCR Not Detected (Not Detect.); Chlamydia pneumoniae PCR Not Detected (Not Detect.); Coronavirus 229E PCR Not Detected (Not Detect.); Coronavirus HKU1 PCR Not Detected (Not Detect.); Coronavirus NL63 PCR Not Detected (Not Detect.); Coronavirus OC43 PCR Not Detected (Not Detect.); Human metapneumovirus PCR Not Detected (Not Detect.); Influenza A PCR Not Detected (Not Detect.); Influenza B PCR Not Detected (Not Detect.); Mycoplasma pneumoniae PCR Not Detected (Not Detect.); Parainfluenza 1 PCR Not Detected (Not Detect.); Parainfluenza 2 PCR Not Detected (Not Detect.); Parainfluenza 3 PCR Not Detected (Not Detect.); Parainfluenza 4 PCR Not Detected (Not Detect.); RSV PCR Not Detected (Not Detect.); Rhino/Enterovirus PCR Not Detected (Not Detect.)
[2025-02-26 08:32] LABS: Influenza A H1 PCR Not Detected (Not Detect.); Influenza A H1-2009 PCR Not Detected (Not Detect.); Influenza A H3 PCR Not Detected (Not Detect.); SARS-CoV-2 PCR Not Detected (Not Detect.)
--- NOTE | 2025-02-26 08:38 | MHC.CM.PN ---
Addendum entered by Michaelle Conard 02/26/25 08:41: Patient does not know who his PCP is. [place] [facility]. Original Note: Patient lives with his S.O. He is independent with all functional mobility. [facility] Nikia is the [facility] A HCP has been documented. DP home self care. Car in lot. Patient will self transport home at discharge
--- NOTE | 2025-02-26 10:49 | P.PNIM_ITS ---
Subjective Subjective Date of Service: 02/26/25 Interval History: cough improved no hypoxia no fever Review of Systems Review of Systems: Yes all other systems are reviewed and are negative Physical Exam 2 Vital Signs: Vital Signs: Last Vital Signs Temp 98.4 F 02/26/25 07:41 Pulse 69 02/26/25 07:41 Resp 16 02/26/25 07:41 BP 112/68 02/26/25 07:41 Pulse Ox 94 02/26/25 07:41 O2 Del Method Room Air 02/26/25 07:41 O2 Flow Rate 2 02/24/25 20:21 Oxygen Flow Rate 2 02/24/25 15:41 BMI result Body Mass Index 15.2 Gen: in no acute distress, thin, pale, malnourished HEENT: sclera anicteric, moist mucus membranes, no thrush Neck: supple Lungs: diminished L base Heart: regular rate and rhythm, no murmurs Abd: soft, non-tender, non-distended Ext: no edema Skin: warm/well-perfused Neuro: alert and oriented x3, no focal findings Psych: appropriate affect Objective Data Active Medications Acetaminophen (Acetaminophen 325 Mg Tablet) 650 mg PO Q6H PRN PRN Reason: Pain, Mild 1-3,fever,headache Calcium Carbonate (Calcium Carbonate 750 Mg Tab.Chew) 750 mg PO Q4H PRN PRN Reason: Heartburn Enoxaparin Sodium (Enoxaparin Sodium 40 Mg/0.4 Ml Syringe) 40 mg SUBCUT Q24H [facility] Last Admin: 02/25/25 19:08 Dose: Not Given Documented By: KRISTAL Non-Admin Reason: Patient Refused Piperacillin Sod/Tazobactam (Sod 4.5 gm/ Sodium Chloride) 100 mls @ 200 mls/hr IV Q6H [facility] Last Infusion: 02/26/25 07:05 Dose: Infused Documented By: ANAHY Vancomycin HCl 1,000 mg/ (Sodium Chloride) 270 mls @ 270 mls/hr IV Q8H [facility] Last Infusion: 02/26/25 06:23 Dose: Infused Documented By: ANAHY Magnesium Hydroxide (Milk Of Magnesia 30 Ml Oral.Susp) 30 ml PO DAILY PRN PRN Reason: Constipation Melatonin (Melatonin 3 Mg Tablet) 6 mg PO BEDTIME PRN PRN Reason: Insomnia Methadone HCl (Methadone Hcl 20 Mg/2 Ml Oral.Conc) 135 mg PO DAILY@0800 [facility] Last Admin: 02/26/25 08:30 Dose: 135 mg Documented By: JAGJIT Co-signed By: JAMES Ondansetron HCl (Ondansetron Hcl 4 Mg/2 Ml Vial) 4 mg IVPUSH Q8H PRN PRN Reason: Nausea and Vomiting Pharmacy Consult (Consult Rx Vancomycin Dosing) 1 each MISCELLANE DAILY PRN PRN Reason: Consult order Sodium Chloride (0.9 % Sodium Chloride Flush 3 Ml Syringe) 3 ml IVFLUSH QSHIFT [facility] Last Admin: 02/26/25 08:34 Dose: 3 ml Documented By: JAGJIT Labs 02/26/25 06:11 02/26/25 06:12 Labs: Laboratory Results - last 24 hr 02/25/25 02/25/25 02/25/25 18:11 18:12 18:14 MCV MCH MCHC RDW Plt Count MPV Absolute Nucleated RBC Nucleated RBC % (auto) PT INR Anion Gap Estim Creat Clear Calc Estimated GFR Random Glucose Calcium Procalcitonin Random Vancomycin 10.0 L Urine Opiates Screen Not Detected Ur Buprenorphine Scrn Not Detected Ur Oxycodone Screen Not Detected Urine Methadone Screen Positive H Urine Fentanyl Screen POSITIVE H Ur Barbiturates Screen Not Detected Ur Phencyclidine Scrn Not Detected Ur Amphetamines Screen Not Detected U Benzodiazepines Scrn POSITIVE H Urine Cocaine Screen POSITIVE H U Marijuana (THC) Screen Not Detected Respiratory Panel Rojas See Note Adenovirus (Rapid PCR) Not Detected B.pert (TEM-PCR) Not Detected B.parapertussis DNA PCR Not Detected C. pneumoniae DNA (PCR) Not Detected Coronavirus OC43 (PCR) Not Detected Coronavirus HKU1 (PCR) Not Detected Coronavirus 229E (PCR) Not Detected Coronavirus NL63 (PCR) Not Detected Human Metapneumovir PCR Not Detected Influenza A (RT-PCR) Not Detected Influenza A (H1) PCR Not Detected Influ A (H1/09) PCR Not Detected Influenza A (H3) PCR Not Detected Influenza B (RT-PCR) Not Detected M. pneumoniae (PCR) Not Detected Parainfluenza 1 (PCR) Not Detected Parainfluenza 2 (PCR) Not Detected Parainfluenza 3 (PCR) Not Detected Parainfluenza 4 (PCR) Not Detected RSV (PCR) Not Detected Entero/Rhino (PCR) Not Detected SARS-CoV-2 RNA (RT-PCR) Not Detected 02/26/25 02/26/25 06:11 06:12 MCV 85.5 MCH 28.4 MCHC 33.2 RDW 14.7 Plt Count 594 H MPV 9.9 Absolute Nucleated RBC 0.000 Nucleated RBC % (auto) 0.0 PT 19.1 H INR 1.6 H Anion Gap 11 L Estim Creat Clear Calc 127.8 Estimated GFR > 60 Random Glucose 72 Calcium 7.9 L Procalcitonin 0.08 Random Vancomycin Urine Opiates Screen Ur Buprenorphine Scrn Ur Oxycodone Screen Urine Methadone Screen Urine Fentanyl Screen Ur Barbiturates Screen Ur Phencyclidine Scrn Ur Amphetamines Screen U Benzodiazepines Scrn Urine Cocaine Screen U Marijuana (THC) Screen Respiratory Panel Rojas Adenovirus (Rapid PCR) B.pert (TEM-PCR) B.parapertussis DNA PCR C. pneumoniae DNA (PCR) Coronavirus OC43 (PCR) Coronavirus HKU1 (PCR) Coronavirus 229E (PCR) Coronavirus NL63 (PCR) Human Metapneumovir PCR Influenza A (RT-PCR) Influenza A (H1) PCR Influ A (H1/09) PCR Influenza A (H3) PCR Influenza B (RT-PCR) M. pneumoniae (PCR) Parainfluenza 1 (PCR) Parainfluenza 2 (PCR) Parainfluenza 3 (PCR) Parainfluenza 4 (PCR) RSV (PCR) Entero/Rhino (PCR) SARS-CoV-2 RNA (RT-PCR) Microbiology Microbiology Results: Microbiology 02/24/25 16:43 Blood Culture - Preliminary Blood - Venous No growth after 24 hours. 02/24/25 16:43 Blood Culture - Preliminary Blood - Venous No growth after 24 hours. Assessment and Plan (1) Pneumonia: Status: Acute Plan d3 for 39yo M with polysubstance abuse on methadone presenting with 2 weeks of cough and unintentional weight loss; found to have multifocal pneumonia multifocal pneumonia with parapneumonic effusion - follow BCx, PCT low, urinary antigens for Legionella and pneumococcus pending, MRSA positive, HIV negative; 02/24- vancomycin + piperacillin-tazobactam; Pulmonology consulted; repeat imaging as outpt in 1-2 mo with Pulm clinic f/u; if continues to improve and BCx negative will d/c home tomorrow on doxycycline + amoxicillin-clavulanate polysubstance abuse - verified methadone dose of 135 mg/d; Addiction Medicine consultation hx HCV - pt states previously treated; viral load pending coagulopathy - suspect nutritional; given vitamin K 5 mg x2, repeat INR in AM moderate malnutrition - supplements VTE ppx - enoxaparin dispo - eventual home Total time managing care of this patient today: 35 minutes. Quality Stroke Does the patient have a stroke diagnosis?: No VTE Prior VTE?: No VTE Risk Level:: Medical - moderate - high VTE Device Contraindication: N/A - Device Ordered VTE Drug Contraindication: N/A - Med Ordered
[2025-02-26 14:00] VITALS: BP 100/60; PULSE 63; RESP 18; TEMP 36.6; O2SAT 95
[2025-02-26 18:13] LABS: Vancomycin Random 20.2 mcg/mL (15-20)
--- NOTE | 2025-02-26 18:24 | HE.PHANOTE ---
Vancomycin Patients trough = 20.2. Adjusting to 1250 mg q12h to start 12 hours after previous dose. Predicted AUC 505. Will recheck level in AM at 1000 to make sure not supratherapeutic.
[2025-02-26 19:28] VITALS: BP 121/71; PULSE 79; RESP 17; TEMP 36.2; O2SAT 95
[2025-02-27] MEDS: Piperacillin Sodium/Tazobactam 4.5 GM in 0.9 % Sodium Chloride 100 ML IV ×2 (00:03→06:22)
[2025-02-27] MEDS: 0.9 % Sodium Chloride Flush 3 ML SYRINGE IVFLUSH ×2 (00:07→08:18)
[2025-02-27] MEDS: vancomycin HCL 1,250 MG in 0.9 % Sodium Chloride 250 ML 166.67 MG IV (00:43)
[2025-02-27 03:21] VITALS: BP 119/72; PULSE 54; RESP 18; TEMP 36.4; O2SAT 94
[2025-02-27 06:45] VITALS: BP 107/54; PULSE 74; RESP 16; TEMP 36.6; O2SAT 94
[2025-02-27] MEDS: methADONE HCl 20 MG/2 ML ORAL.CONC 135 MG PO (08:19)
[2025-02-27 08:20] LABS: INTERNATIONAL NORM RATIO 1.5 (0.9-1.1); Prothrombin Time 17.5 SEC (10.9-12.4)
[2025-02-27 08:34] LABS: Creatinine Clr Calc Pharmacy 102.4; Estimated Glomerular Filt Rate > 60
--- NOTE | 2025-02-27 10:32 | P.DS_ITS ---
DS: Providers Provider Date of Service: 02/27/25 Date of admission: 02/24/25 18:30 Date of discharge: 02/27/25 Primary care physician: None Physician Consults: 02/24/25 17:56 Consult to Pulmonology Routine Consulting Provider[place] [facility] [facility] Reason for consultation: pneumonia w effusion/lung mass 02/24/25 18:30 Addiction Medicine Provider Routine Consulting Provider: Addiction Covering Reason for consultation: cocaine ,fentanyl DS: Diagnosis Discharge Diagnosis (1) Pneumonia: Status: Acute (2) Lung nodules: Status: Acute (3) Parapneumonic effusion: Status: Acute (4) Moderate protein-calorie malnutrition: Status: Acute (5) Coagulopathy: Status: Acute DS: Summary Hospital Course Hospital Course: from my admission H+P, 02/24/25: 39yo M with polysubstance abuse disorder on methadone 135 mg/d through [facility] but despite this using intranasal fentanyl, cocaine, and alprazolam; presents today with 2-week history of worsening cough productive of green sputum, unintentional 10-lb weight loss, and malaise. No fever, chills, chest pain, or hemoptysis. No travel history nor occupational exposures. Denies injecting drugs; just inhales them. No history of chronic lung disease. In the ED, found to have leukocytosis and borderline low oxygenation with SaO2 91% on room air. CT angio of the chest negative for PE, but did show moderate L pleural effusion, complete LLL consolidation, and nodular areas of consolidation in the RLL concerning for pneumonia versus malignancy. Blood cultures were drawn and he was given ceftriaxone and azithromycin. 39yo M with polysubstance abuse on methadone presenting with 2 weeks of cough and unintentional weight loss; found to have multifocal pneumonia and admitted to the medical-surgical unit on IV vancomycin and piperacillin-tazobactam for 3 days. Pulmonology consulted; nodular appearance of lungs likely due to infection but will see him as an outpatienet in 1 month with plan to repeat CT of the chest. HIV negative, procalcitonin low, respiratory pathogen panel, blood cultures negative, MRSA swab positive, urinary antigens for Legionella and pneumococcus pending at the time of discharge. He improved symptomatically and was discharged home on 7 days of doxycycline and amoxicillin-clavulanate. Home dose of methadone was verified and continud. He was counseled to avoid tobacco and drugs of abuse. He had mild coagulopathy likely due to malnutrition and was given vitamin K as well as protein shakes. Time Attestation Discharge Coordination Time (in mins): 40 Quality: Safe Use of Opioids Does Pt have an Active Cancer Diagnosis on the Problem List?: No Quality: Stroke Does the patient have a stroke diagnosis?: No Physical Exam Vital Signs: Vital Signs: Last Vital Signs Temp 98 F 02/27/25 06:45 Pulse 74 02/27/25 06:45 Resp 16 02/27/25 06:45 BP 107/54 L 02/27/25 06:45 Pulse Ox 94 02/27/25 06:45 O2 Del Method Room Air 02/27/25 06:45 O2 Flow Rate 2 02/24/25 20:21 Oxygen Flow Rate 2 02/24/25 15:41 BMI result Body Mass Index 15.2 Gen: in no acute distress, thin, pale, malnourished HEENT: sclera anicteric, moist mucus membranes, no thrush Neck: supple Lungs: diminished L base Heart: regular rate and rhythm, no murmurs Abd: soft, non-tender, non-distended Ext: no edema Skin: warm/well-perfused Neuro: alert and oriented x3, no focal findings Psych: appropriate affect DS: Data Data Completed and Pending Completed studies during hospitalization [Text1]: Laboratory Results WBC 9.2 X10*3/uL (4.8-10.8) 02/26/25 06:11 RBC 3.66 X10*6/uL (4.60-5.80) L 02/26/25 06:11 Hgb 10.4 g/dl (14.0-18.0) L 02/26/25 06:11 Hct 31.3 % (42.0-52.0) L 02/26/25 06:11 MCV 85.5 fL (80.0-98.0) 02/26/25 06:11 MCH 28.4 pg (27.0-33.0) 02/26/25 06:11 MCHC 33.2 g/dl (31.0-36.0) 02/26/25 06:11 RDW 14.7 % (11.0-16.0) 02/26/25 06:11 Plt Count 594 X10*3/uL (160-400) H 02/26/25 06:11 MPV 9.9 fL (9.4-12.4) 02/26/25 06:11 Immature Gran % (Auto) 1.1 % (0.0-0.4) H 02/24/25 15:30 Neut % (Auto) 75.1 % (45-73) H 02/24/25 15:30 Lymph % (Auto) 8.3 % (20-40) L 02/24/25 15:30 [place] % (Auto) 6.4 % (2-11) 02/24/25 15:30 Eos % (Auto) 8.5 % (0-4) H 02/24/25 15:30 Baso % (Auto) 0.6 % (0-2) 02/24/25 15:30 Lymph # (Auto) 1.2 X10*3/uL (1.2-4.9) 02/24/25 15:30 [place] # (Auto) 0.9 X10*3/uL (0.1-1.2) 02/24/25 15:30 Eos # (Auto) 1.3 X10*3/uL (0.0-0.4) H 02/24/25 15:30 Baso # (Auto) 0.1 X10*3/uL (0.0-0.2) 02/24/25 15:30 Abs Immat Gran (auto) 0.16 X10*3/uL (0.00-0.03) H 02/24/25 15:30 Absolute Neuts (auto) 11.1 x10*3/uL (2.0-8.3) H 02/24/25 15:30 Absolute Nucleated RBC 0.000 X10*3/uL (0.0-0.012) 02/26/25 06:11 Nucleated RBC % (auto) 0.0 /100WBC (0.0-0.2) 02/26/25 06:11 ESR 102 MM/HR (0-15) H 02/24/25 15:30 Hold Purple Top SEE NOTE 02/27/25 06:30 PT 17.5 SEC (10.9-12.4) H 02/27/25 06:30 INR 1.5 (0.9-1.1) H 02/27/25 06:30 VBG pH 7.48 (7.32-7.43) H 02/25/25 06:27 VBG pCO2 42 mmHg 02/25/25 06:27 VBG pO2 45 mmHg 02/25/25 06:27 VBG HCO3 32 mmol/L (22-26) H 02/25/25 06:27 VBG O2 Saturation 74.0 % 02/25/25 06:27 VBG Base Excess 8.1 mmol/L 02/25/25 06:27 Sodium 138 mmol/L (135-145) 02/26/25 06:12 Potassium 4.1 mmol/L (3.3-5.1) 02/26/25 06:12 Chloride 107 mmol/L (96-108) 02/26/25 06:12 Carbon Dioxide 24 mmol/L (22-29) 02/26/25 06:12 Anion Gap 11 (12-20) L 02/26/25 06:12 BUN 8 mg/dL (9-16) L 02/26/25 06:12 Creatinine 0.69 mg/dL (0.5-1.4) 02/27/25 06:30 Estim Creat Clear Calc 102.4 02/27/25 06:30 Estimated GFR > 60 02/27/25 06:30 POC Glucose 89 mg/dL (60-115) 02/25/25 07:21 Random Glucose 72 mg/dL (60-115) 02/26/25 06:12 Lactic Acid 0.7 mmol/L (0.5-2.0) 02/24/25 16:43 Calcium 7.9 mg/dL (8.4-10.2) L 02/26/25 06:12 Magnesium 2.1 mg/dL (1.6-2.6) 02/24/25 15:30 Total Bilirubin 0.2 mg/dL (0.0-1.0) 02/24/25 15:30 AST 50 U/L (5-37) H 02/24/25 15:30 ALT 35 U/L (0-40) 02/24/25 15:30 Alkaline Phosphatase 90 U/L (39-117) 02/24/25 15:30 Troponin I High Sens < 2.7 ng/L (<3.5-35.0) 02/24/25 15:30 C-Reactive Protein 19.82 mg/dL (< or = 0.50) H 02/24/25 15:30 B-Natriuretic Peptide 17 pg/mL (<100) 02/24/25 15:30 Total Protein 7.6 g/dL (6.5-8.0) 02/24/25 15:30 Albumin 2.2 g/dL (3.5-5.0) L 02/24/25 15:30 Procalcitonin 0.08 ng/mL 02/26/25 06:12 Nasal Screen MRSA (PCR) POSITIVE (Negative) A 02/24/25 18:27 Nasal S. aureus Screen POSITIVE (Negative) A 02/24/25 18:27 Nasal MRSA/S.aureus Interp SEE NOTE 02/24/25 18:27 Random Vancomycin 20.2 mcg/mL (15-20) H 02/26/25 17:53 Urine Opiates Screen Not Detected (Not Detect) 02/25/25 18:11 Ur Buprenorphine Scrn Not Detected ng/mL (Not Detect) 02/25/25 18:11 Ur Oxycodone Screen Not Detected ng/mL (Not Detect) 02/25/25 18:11 Urine Methadone Screen Positive ng/mL (Not Detect) H 02/25/25 18:11 Urine Fentanyl Screen POSITIVE (Not Detect) H 02/25/25 18:11 Ur Barbiturates Screen Not Detected (Not Detect) 02/25/25 18:11 Ur Phencyclidine Scrn Not Detected (Not Detect) 02/25/25 18:11 Ur Amphetamines Screen Not Detected (Not Detect) 02/25/25 18:11 U Benzodiazepines Scrn POSITIVE (Not Detect) H 02/25/25 18:11 Urine Cocaine Screen POSITIVE (Not Detect) H 02/25/25 18:11 U Marijuana (THC) Screen Not Detected (Not Detect) 02/25/25 18:11 Respiratory Panel [place] See Note 02/25/25 18:12 Adenovirus (Rapid PCR) Not Detected (Not Detect.) 02/25/25 18:12 B.pert (TEM-PCR) Not Detected (Not Detect.) 02/25/25 18:12 B.parapertussis DNA PCR Not Detected (Not Detect.) 02/25/25 18:12 C. pneumoniae DNA (PCR) Not Detected (Not Detect.) 02/25/25 18:12 Coronavirus OC43 (PCR) Not Detected (Not Detect.) 02/25/25 18:12 Coronavirus HKU1 (PCR) Not Detected (Not Detect.) 02/25/25 18:12 Coronavirus 229E (PCR) Not Detected (Not Detect.) 02/25/25 18:12 Coronavirus NL63 (PCR) Not Detected (Not Detect.) 02/25/25 18:12 Hep Bs Antigen Negative (Negative) 02/25/25 06:20 Hep Bs Antibody REACTIVE (Nonreactive) 02/25/25 06:20 Hep B Core Total Ab Nonreactive (Nonreactive) 02/25/25 06:20 Hepatitis C Ab (EIA) Reactive (Nonreactive) H 02/25/25 06:20 HIV 1&2 Ab/P24 Ag 4thGn Nonreactive (Nonreactive) 02/25/25 06:20 Human Metapneumovir PCR Not Detected (Not Detect.) 02/25/25 18:12 Influenza A (RT-PCR) Not Detected (Not Detect.) 02/25/25 18:12 Influenza A (H1) PCR Not Detected (Not Detect.) 02/25/25 18:12 Influ A (H1/09) PCR Not Detected (Not Detect.) 02/25/25 18:12 Influenza A (H3) PCR Not Detected (Not Detect.) 02/25/25 18:12 Influenza Type A (PCR) NEGATIVE (Negative) 02/24/25 15:30 Influenza B (RT-PCR) Not Detected (Not Detect.) 02/25/25 18:12 Influenza Type B (PCR) NEGATIVE (Negative) 02/24/25 15:30 M. pneumoniae (PCR) Not Detected (Not Detect.) 02/25/25 18:12 Parainfluenza 1 (PCR) Not Detected (Not Detect.) 02/25/25 18:12 Parainfluenza 2 (PCR) Not Detected (Not Detect.) 02/25/25 18:12 Parainfluenza 3 (PCR) Not Detected (Not Detect.) 02/25/25 18:12 Parainfluenza 4 (PCR) Not Detected (Not Detect.) 02/25/25 18:12 RSV (PCR) Not Detected (Not Detect.) 02/25/25 18:12 RSV RNA Qual (PCR) NEGATIVE (Negative) 02/24/25 15:30 Entero/Rhino (PCR) Not Detected (Not Detect.) 02/25/25 18:12 SARS-CoV-2 RNA (RT-PCR) Not Detected (Not Detect.) 02/25/25 18:12 Impressions Chest X-Ray 02/24/25 14:36 IMPRESSION: Right-sided pleural effusion, moderate to large volume. Airspace disease versus malignancy, right lower lung lobe. Electronically signed by: En Alcantara MD 02/24/2025 02:54 PM EDT Discharge Plan Discharge Anticipated Discharge Date/Time: 02/27/25 10:31 Patient Disposition: Home, Self-Care Discharge Diagnosis: pneumonia, possible lung mass [place] [facility] [place]smany [Provider Group] - 1 Week Taquerai Kong MD [Physician] - 1 Month Physician,Karla [Primary Care Provider] - 1 Week Discharge Medications: New methadone [Methadose] 10 mg/mL Concentrate 135 mg PO DAILY@0800 Qty: 1 0RF Rx Instructions: Partial Fill upon patient request. doxycycline monohydrate 100 mg tablet 100 mg PO BID Qty: 14 0RF amoxicillin-pot clavulanate 875-125 mg tablet 1 tab PO BID Qty: 14 0RF Discharge Orders: Discharge Order (Routine); Ordered 02/27/25 Ordered By: Constance Allen Diet: Advance to usual diet Activity on Discharge: As tolerated Stand Alone Forms: Patient Portal Discharge page Print Language: Chinese Care Plan Goals: recovery from pneumonia Health Concerns: pneumonia, possible lung mass Plan of Treatment: take doxycycline monohydrate 100 mg twice daily PLUS amoxicillin-clavulanate 100 mg twice daily for 7 days establish primary care as soon as possible quit smoking; use nicotine replacement to help avoid using drugs follow up with Dr Taqueria Kong [place] [facility] [place] [address] scan of chest/lungs Return to the hospital if you experience recurrent or worsening symptoms. Assessment: See Discharge Summary.
[2025-02-27 10:52] VITALS: BP 135/73; PULSE 80; RESP 17; TEMP 36.4; O2SAT 95
--- NOTE | 2025-02-27 11:23 | MHC.CM.PN ---
Patient dc'd home self care via private transport.
[2025-02-27 16:04] LABS: Strep Pneumo Ag urine Not Detected (Not Detected)
[2025-03-01 05:23] LABS: Legionella Ag Urine Not Detected (Not Detected)
[2025-03-01 08:44] LABS: HCV Log PCR <1.18 NOT DETECTED Log IU/mL (NOT DETECTED); HepC Viral Load <15 NOT DETECTED IU/mL (NOT DETECTED)
== END 2025-02-27 10:56 | disposition home or self-care (01) | DRG 139 ==
LOC: HO.ED 17:39 → HO.EDOVER 18:38 → HO.S3 02-25 19:29
PROVIDERS: Nurse Practitioner Psychiatric/Mental Health; Physician Assistant; Physician Assistant Medical; Admitting Provider Family Medicine; Emergency Provider Emergency Medicine Emergency Medical Services; Visit Provider Family Medicine
DX: J18.9 Pneumonia, unspecified organism (principal); D68.9 Coagulation defect, unspecified; E44.0 Moderate protein-calorie malnutrition; J91.8 Pleural effusion in other conditions classified elsewhere; F11.20 Opioid dependence, uncomplicated; F17.210 Nicotine dependence, cigarettes, uncomplicated; Z71.6 Tobacco abuse counseling; F19.10 Other psychoactive substance abuse, uncomplicated; Z68.1 Body mass index [BMI] 19.9 or less, adult; R91.8 Other nonspecific abnormal finding of lung field; Z86.19 Personal history of other infectious and parasitic diseases; Z20.822 Contact with and (suspected) exposure to COVID-19; Z22.322 Carrier or suspected carrier of Methicillin resistant Staphylococcus aureus
CPT/HCPCS: 0241U; 36415; 71046; 71275; 80048; 80053; 80202; 80307; 82565; 82803; 82947; 83605; 83735; 83880; 84145; 84484; 85025; 85027; 85610; 85652; 86140; 86704; 86706; 86803; 87040; 87070; 87205; 87340; 87389; 87449; 87522; 87633; 87640; 87641; 87899; 93005; 99285; J0456; J0696; J2543; J3370; J3371; Q9967; S9485

== ENCOUNTER → 2025-02-24 14:23 | Outpatient (BNV) | payer OTHER, SELFPAY | PROVIDERS: Admitting Provider Family Medicine; Emergency Provider Emergency Medicine Emergency Medical Services; Visit Provider Internal Medicine | DX: R00.0 Tachycardia, unspecified (principal) | CPT/HCPCS: 93010 ==

== ENCOUNTER → 2025-02-24 14:36 | Outpatient (BNV) | payer OTHER, SELFPAY | PROVIDERS: Visit Provider Radiology Diagnostic Radiology | DX: J90 Pleural effusion, not elsewhere classified (principal); R91.8 Other nonspecific abnormal finding of lung field | CPT/HCPCS: 71046; 71275 ==

== ENCOUNTER → 2025-02-24 18:30 | Outpatient (BNV) | payer OTHER, SELFPAY | PROVIDERS: Admitting Provider Family Medicine; Emergency Provider Emergency Medicine Emergency Medical Services; Visit Provider Family Medicine | DX: J18.9 Pneumonia, unspecified organism (principal); R91.8 Other nonspecific abnormal finding of lung field | CPT/HCPCS: 99223; 99232; 99239 ==

== ENCOUNTER → 2025-02-24 18:30 | Outpatient (BNV) | payer OTHER, SELFPAY | PROVIDERS: Admitting Provider Family Medicine; Emergency Provider Emergency Medicine Emergency Medical Services; Visit Provider Internal Medicine Pulmonary Disease | DX: J18.9 Pneumonia, unspecified organism (principal) | CPT/HCPCS: 99223 ==